=== PATIENT | male | born 1950 | race Caucasian/White ===

== ENCOUNTER 2024-09-30 10:14 | Inpatient (IN) | payer OTHER ==
[~2024-09-30] VITALS: Ht 170.2 cm; Wt 65.8 kg
[2024-09-30 10:38] LABS: BASOPHILS % 0.4 % (0.0-2.0); EOSINOPHILS % 0.3 % (0.0-5.0); HEMATOCRIT. 39.9 % (42.0-52.0); HEMOGLOBIN. 13.9 g/dL (14.0-18.0); LYMPHOCYTES % 27.2 % (20.0-50.0); MEAN PLATELET VOLUME 8.9 fl (7.4-10.4); MONOCYTES % 7.6 % (2.0-8.0); NEUTROPHILS % 64.5 % (40.0-76.0); PLATELET 183 x1000/uL (130-400); RED BLOOD CELL COUNT 4.17 mill/uL (4.7-6.1); RED CELL DISTRIBUTION WIDTH 12.9 % (11.6-14.6)
[2024-09-30 10:57] LABS: CREATININE 1.0 mg/dL (0.6-1.3); TROPONIN I HIGH SENSITIVITY < 4 ng/L (3.0-53); UREA NITROGEN BLOOD 13 mg/dL (9-23)
[2024-09-30 13:28] LABS: TROPONIN I HIGH SENSITIVITY < 4 ng/L (3.0-53)
[2024-09-30 15:32] VITALS: BP 104/68; PULSE 72; RESP 17; TEMP 36.6
[2024-09-30 15:58] VITALS: BP 132/68; PULSE 74; RESP 16; TEMP 36.7; O2SAT 99
[2024-09-30] MEDS ORDERED: ONDANSETRON HCL 4MG/2ML INJ IV PRN (16:30)
[2024-09-30] MEDS ORDERED: IPRATROPIUM/ALBUTEROL 0.5-3(2.5)MG/3ML NEB HHN PRN (16:30)
[2024-09-30] MEDS ORDERED: CLONIDINE 0.1MG TABLET PO PRN (16:30)
[2024-09-30] MEDS ORDERED: DOCUSATE SODIUM 100MG CAPSULE PO PRN (16:30)
[2024-09-30] MEDS ORDERED: ACETAMINOPHEN 325MG TABLET PO PRN (16:30)
[2024-09-30 18:18] LABS: TRIGLYCERIDE 114.0 mg/dL (0-150)
[2024-09-30 18:19] LABS: LDL CHOLESTEROL 104.0 mg/dL (5-100)
[2024-09-30 20:00] VITALS: BP 128/68; PULSE 68; RESP 20; TEMP 36.1; O2SAT 95
[2024-09-30] MEDS: ACETAMINOPHEN 325MG TABLET PO PRN (20:52)
[2024-10-01] VITALS: BP 100/66; PULSE 73; RESP 20; TEMP 36.2; O2SAT 99
[2024-10-01 07:42] LABS: BASOPHILS % 0.8 % (0.0-2.0); EOSINOPHILS % 1.5 % (0.0-5.0); HEMATOCRIT. 40.1 % (42.0-52.0); HEMOGLOBIN. 13.6 g/dL (14.0-18.0); LYMPHOCYTES % 29.0 % (20.0-50.0); MEAN PLATELET VOLUME 9.7 fl (7.4-10.4); MONOCYTES % 8.4 % (2.0-8.0); NEUTROPHILS % 60.3 % (40.0-76.0); PLATELET 190 x1000/uL (130-400); RED BLOOD CELL COUNT 4.21 mill/uL (4.7-6.1); RED CELL DISTRIBUTION WIDTH 13.1 % (11.6-14.6)
[2024-10-01 07:54] LABS: CREATININE 0.8 mg/dL (0.6-1.3)
[2024-10-01 07:55] LABS: TROPONIN I HIGH SENSITIVITY < 4 ng/L (3.0-53); UREA NITROGEN BLOOD 11 mg/dL (9-23)
[2024-10-01 07:56] VITALS: BP 116/59; PULSE 66; RESP 17; TEMP 36.7; O2SAT 100
[2024-10-01 08:50] LABS: CLARITY URINE CLEAR (CLEAR); COLOR URINE YELLOW (YELLOW); GLUCOSE URINE NEGATIVE (NEGATIVE); KETONES URINE NEGATIVE (NEGATIVE); LEUKOCYTE ESTERASE URINE NEGATIVE (NEGATIVE); NITRITE URINE NEGATIVE (NEGATIVE); OCCULT BLOOD URINE NEGATIVE (NEGATIVE); PH URINE 5.5 (4.5-8.0); PROTEIN URINE NEGATIVE (NEGATIVE); SPECIFIC GRAVITY URINE 1.020 (1.005-1.030); UROBILINOGEN URINE 1.0 E.U./dL (0.2-1.0)
[2024-10-01 09:09] LABS: *AMPHETAMINES SCREEN URINE NEGATIVE (NEGATIVE); *BARBITURATES SCREEN URINE NEGATIVE (NEGATIVE); *BENZODIAZEPINES SCREEN URINE NEGATIVE (NEGATIVE); *COCAINE SCREEN URINE NEGATIVE (NEGATIVE); CANNABINOID URINE SCREEN NEGATIVE (NEGATIVE); ECSTASY MDMA SCREEN URINE NEGATIVE (NEGATIVE); METHADONE URINE SCREEN NEGATIVE (NEGATIVE); OPIATES URINE SCREEN NEGATIVE (NEGATIVE); PHENCYCLIDINE URINE SCREEN NEGATIVE (NEGATIVE)
[2024-10-01] MEDS: ASPIRIN 81MG EC TABLET PO SCH (11:25)
[2024-10-01 12:00] VITALS: BP 105/63; PULSE 62; RESP 16; TEMP 36.6; O2SAT 96
[2024-10-01 16:00] VITALS: BP 111/57; PULSE 70; RESP 18; TEMP 36.8; O2SAT 98
[2024-10-01 20:09] VITALS: BP 118/62; PULSE 70; RESP 18; TEMP 36.2; O2SAT 100
[2024-10-01] MEDS: METOPROLOL TARTRATE 25MG TABLET PO SCH (20:46)
[2024-10-01] MEDS: ATORVASTATIN CALCIUM 40MG TABLET PO SCH (20:47)
[2024-10-02 00:04] VITALS: BP 102/59; PULSE 58; RESP 15; TEMP 36.5; O2SAT 98
[2024-10-02 04:00] VITALS: BP 104/57; PULSE 57; RESP 16; TEMP 36.5; O2SAT 100
[2024-10-02 08:08] VITALS: BP 117/61; PULSE 65; RESP 16; TEMP 36.6; O2SAT 99
[2024-10-02 12:00] VITALS: BP 100/54; PULSE 64; RESP 18; TEMP 36.7; O2SAT 100
[2024-10-02 16:00] VITALS: BP 106/56; PULSE 98; RESP 18; TEMP 36.1; O2SAT 100
[2024-10-02 20:00] VITALS: BP 101/53; PULSE 98; RESP 18; TEMP 36.1; O2SAT 100
[2024-10-03] VITALS: BP 99/48; PULSE 98; RESP 18; TEMP 36.5; O2SAT 100
[2024-10-03 04:00] VITALS: BP 99/50; PULSE 98; RESP 18; TEMP 36.5; O2SAT 100
[2024-10-03 08:00] VITALS: BP 107/57; PULSE 70; RESP 17; TEMP 36.5; O2SAT 99
[2024-10-03 12:00] VITALS: BP 104/57; PULSE 73; RESP 17; TEMP 36.6; O2SAT 100
[2024-10-03 16:00] VITALS: BP 106/57; PULSE 73; RESP 18; TEMP 36.7; O2SAT 98
[2024-10-03 20:00] VITALS: BP 103/56; PULSE 76; RESP 18; TEMP 36.2; O2SAT 96
[2024-10-04] VITALS (7 sets, daily range): BP systolic 100–138; BP diastolic 55–81; PULSE 66–79; RESP 18–20; TEMP 36.1–36.8; O2SAT 97–100
[2024-10-04] MEDS ORDERED: LIP40 PO ×2 (13:04→16:43)
[2024-10-04] MEDS ORDERED: ASPI-1406 PO ×2 (13:04→16:43)
[2024-10-05] VITALS: BP 129/78; PULSE 77; RESP 20; TEMP 36.7; O2SAT 98
[2024-10-05 04:00] VITALS: BP 144/90; PULSE 75; RESP 20; TEMP 36; O2SAT 98
[2024-10-05 07:54] VITALS: BP 113/63; PULSE 68; RESP 16; TEMP 36.4; O2SAT 100
== END 2024-10-05 11:56 | disposition home or self-care (01) | DRG 203 ==
LOC: ER 10:14 → 8WST 12:04
PROVIDERS: ADMIT Family Medicine Adult Medicine; ATTEND Family Medicine Adult Medicine
DX: M94.0 Chondrocostal junction syndrome [Tietze] (principal); E78.5 Hyperlipidemia, unspecified; F41.9 Anxiety disorder, unspecified; G89.29 Other chronic pain; J44.9 Chronic obstructive pulmonary disease, unspecified; I45.10 Unspecified right bundle-branch block; M54.2 Cervicalgia; I49.1 Atrial premature depolarization; M54.9 Dorsalgia, unspecified; Z79.899 Other long term (current) drug therapy; Z59.00 Homelessness unspecified
CPT/HCPCS: 36415; 71045; 80048; 80061; 80305; 81003; 83735; 83880; 84443; 84484; 85025; 93005; 93306; 93880; 93970; 97162; 99285; A4606